=== PATIENT | female | born 2005 ===

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

== ENCOUNTER 2025-01-16 22:59 | Emergency (ER) | payer MEDICAID, SELFPAY ==
--- OUTSIDE RECORDS SUMMARY | 2015-06-29 01:00 | XMS_ITS | Encounter Summary ---
Author Organization [facility] Address [address] [place] [address] Phone Care Team Providers Care Dobby Loom Fixer Name Role Phone Unavailable Primary Care Provider Unavailabl e Encounter Details Date Type Department Care Team (Late st Contact Info) Description 06/29/2015 Hospital Encounter [facility] [address] [place] [address] Gian Aguirre MD Social History Tobacco Use Types Packs/Day Years Used Date Smoking Tobacco: Never Smokeless Tobacco: Never Child or Family Care Answer Date Record ed Do you have problems with on e of the following making it difficult for you to work, study, or receive health care? No 09/26/2023 Education Answer Date Recorded Are you interested in more education? Not on joycelyn e 09/26/2023 Are you concerned about your learning, performance, or behavior in school? No 09/26/2023 No 09/26/2023 Yes 09/26/2023 Food Answer Date Recorded Within the past 6 months we worried whether our food would run out before we got money to buy more. Never True 09/26/2023 Within the past 6 months the food we bought just didn't last and we didn't have enough money to get more. Never True Residential Stability Answer Date Recor ded What is your housing situation today? I have [place] 09/26/2023 How many times have you move d in the past 12 months? Zero (I did not move) 09/26/2023 Paying for Meds Answer Date Recorded Do you have trouble paying for medicines? No 09/26/2023 Paying Utility Bills Answer Date Record ed Do you have trouble paying your heating or elect ricity bill? No 09/26/2023 Transportation Answer Date Recorded Has the lack of transportati on kept you from medical appointments or from getting medications? Yes 09/26/2023 Unemployment Answer Date Recorded Are you currently unemployed or working on a part-time or temporary basis, and looking for work? No 04/19/2022 Digital Access Answer Date Recorded No 09/26/2023 Yes 09/26/2023 Do you have reliable internet access at home? Ye s 09/26/2023 Do you have a device (e.g., phone, tablet, computer) with a working camera? Yes 09/26/2023 Comments Unknown Sex and Gender Information Value Date Recorded Sex Assigned at Not on file Legal Sex Female 6:45 PM EST Gender Identity Not on file Sexual Orientation Not on file documented as of this encounter Plan of Treatment Not on file documented as of this encounter Procedures Procedure Name Priority Date/Time Associated Diagnosis Comments XR LOWER EXTREMITY OUTSIDE (NO INTERPRETATION) Routine 06/29/2015 12:00 AM EST documented in this encounter Results * XR Lower Extremity Outside (No Interpretation) (06/29/2015 12:00 AM EST) Narrative [facility] - 10/27/2015 2:09 PM EDT This study is for PACS storage only and not for interpretation. Procedure Note SYSTEMGENERATED, DOCUMENTATION - 10/27/2015 This study is for PACS storage only and not for interpretation. us Gian Aguirre MD IMG OUTSIDE IMAGING W/OUT IN TERPRETATION Final Result [facility] documented in this encounter Visit Diagnoses Not on filedocumented in this encounter Additional Health Concerns Infection Onset Date Last Indicated Resolved Time CoV-Risk 11/20/2019 11/22/2019 12/04/2019 1:27 AM EDT CoV-Risk 03/31/2020 04/08/2020 04/21/2020 1:2 3 AM EST CoV-Exposed Comment:Recent close contact documented in the COVID-19 PCR/PRO order 11/09/2020 11/19/2020 12/14/2020 1:25 AM E DT CoV-Risk 12/30/2020 12/30/2020 01/09/2021 1:25 AM EDT CoV-Risk 01/25/2021 01/25/2021 02/04/2021 1:22 AM EDT CoV-Exposed Comment:Recent close contact documented in the COVID-19 PCR/PRO order 03/02/2021 03/02/2021 03/27/2021 1:[address] CoV-Risk 04/25/2021 04/26/2021 05/05/2021 1:23 AM EST CoV-Exposed Comment:Recent close contact documented in the COVID-19 PCR/PRO order 04/25/2021 04/25/2021 05/10/2021 1:[address] CoV-Risk 05/10/2021 05/11/2021 05/20/2021 1:23 AM EST CoV-Risk 07/05/2021 07/05/2021 07/16/2021 1:24 AM EDT CoV-Risk 08/31/2021 08/31/2021 09/11/2021 1:22 AM EDT documented as of this encounter Additional Source Comments The information contained in this document represents components of the legal health record. It is not the complete legal health record.[facility]
--- OUTSIDE RECORDS SUMMARY | 2015-06-29 01:15 | XMS_ITS | Encounter Summary ---
Author Organization [facility] Address [address] [place] [phone] Phone Care Team Providers Care Cloth Printing Back Tender Name Role Phone Unavailable Primary Care Provider Unavailabl e Encounter Details Date Type Department Care Team (Late st Contact Info) Description 06/29/2015 12:15 AM EST Hospital Encounter [facility] [address] [place] [address] Gian Aguirre MD [email or web address] Social History Tobacco Use Types Packs/Day Years [...] LOWER EXTREMITY OUTSIDE (NO INTERPRETATION) Routine 06/29/2015 12:15 AM EST documented in this encounter Results * XR Lower Extremity Outside (No Interpretation) (06/29/2015 12:15 AM EST) Narrative [facility] - 10/27/2015 2:09 PM EDT This study is for PACS storage only and not for interpretation. Procedure Note SYSTEMGENERATED, DOCUMENTATION - 10/27/2015 This study is for PACS storage only and not for interpretation. us Gian Aguirre MD IMG OUTSIDE IMAGING W/OUT IN TERPRETATION Final Result [facility] documented in this encounter Visit Diagnoses Not on filedocumented in this encounter Additional Health Concerns Infection Onset Date Last Indicated Resolved Time CoV-Risk 11/20/2019 11/22/2019 12/04/2019 1:27 AM EDT CoV-Risk 03/31/2020 04/08/2020 04/21/2020 1:23 AM EST CoV-Exposed Comment:Recent close contact [...] It is not the complete legal health record.[facility]
--- OUTSIDE RECORDS SUMMARY | 2015-10-20 | XMS_ITS | Encounter Summary ---
Author Organization [facility] Address [address] [place] [address] Phone Care Team Providers Care Therapeutic Specialist Name Role Phone Unavailable Primary Care Provider Unavailabl e Encounter Details Date Type Department Care Team (Late st Contact Info) Description 10/20/2015 Hospital Encounter [facility] [address] [place] [address] Gian Aguirre MD Social History Tobacco Use [...] XR LOWER EXTREMITY OUTSIDE (NO INTERPRETATION) Routine 10/20/2015 12:00 AM EDT documented in this encounter Results * XR Lower Extremity Outside (No Interpretation) (10/20/2015 12:00 AM EDT) Narrative [facility] - 10/27/2015 2:10 PM EDT This study is for PACS storage only and not for interpretation. Procedure Note SYSTEMGENERATED, DOCUMENTATION - 10/27/2015 This study is for PACS storage only and not for interpretation. us Gian Aguirre MD IMG OUTSIDE IMAGING W/OUT IN TERPRETATION Final Result [facility] documented in this encounter Visit [...] It is not the complete legal health record.[facility]
--- OUTSIDE RECORDS SUMMARY | 2023-09-26 12:52 | XMS_ITS | Encounter Summary ---
Author Organization [facility] Address [address] [place] [phone] Phone Care Team Providers Care Behavioral Health Counselor Name Role Phone Gilda Lanza MD Primary Care Provider [phone] Gilda Lanza MD Unavailable [phone] Gilda Lanza MD Unavailable [phone] Encounter Details Date Type Department Care Team (Late st Contact Info) Description 09/26/2023 12:52 PM EDT Hospital Encounter [facility] Care - [id number] at [place], [place] [address] [place] [address] Olegario Huizar MD [address] [place] [id number] [email or web address] Social History Tobacco Use Types Packs/Day Years [...] your housing situation today? I have toi sing 09/26/2023 How many times have you move [...] Name Priority Date/Time Associated Diagnosis Comments XR FOOT 2 VIEWS (RIGHT) Routine 09/26/2023 1:05 PM EDT Pain XR FOOT 3 OR MORE VIEWS (LEFT) Routine 09/26/2023 1:05 PM EDT Pain documented in this encounter Results * XR FOOT 2 VIEWS (RIGHT) (09/26/2023 1:05 PM EDT) Anatomical Region Laterality Modality Foot Right Computed Radiogr aphy 09/26/2023 1:12 PM EDT Impressions 09/26/2023 1:18 PM EDT Left foot mild pes planus Narrative 09/26/2023 1:18 PM EDT XR FOOT 2 VIEWS (RIGHT), XR FOOT 3 OR MORE VIEWS (LEFT) Referring clinician's provided indication for this examination in Epic: Pain COMPARISON: None FINDINGS: Left foot: There is mild pes planus. No fracture. Normal alignment. Normal joint spaces. No soft tissue swelling. Right foot: No fracture. Normal alignment. Normal joint spaces. No soft tissue swelling. Procedure Note Cinthia Wooten MD - 09/26/2023 XR FOOT 2 VIEWS (RIGHT), XR FOOT 3 OR MORE VIEWS (LEFT) Referring clinician's provided indication for this examination in Epic:Pain COMPARISON: None FINDINGS: Left foot: There is mild pes planus. No fracture. Normal alignment.Normal joint spaces. No soft tissue swelling. Right foot: No fracture. Normal alignment. Normal joint spaces. No softtissue swelling. IMPRESSION: Left foot mild pes planus Olegario Huizar MD IMG XR LOWER EXTREMITY Final Result * XR FOOT 3 OR MORE VIEWS (LEFT) (09/26/2023 1:05 PM EDT) Anatomical Region Laterality Modality Foot Left Computed Radiogr aphy 09/26/2023 1:12 PM EDT Impressions 09/26/2023 1:18 PM EDT Left foot mild pes planus Narrative 09/26/2023 1:18 PM EDT XR FOOT 2 VIEWS (RIGHT), XR FOOT 3 OR MORE VIEWS (LEFT) Referring clinician's provided indication for this examination in Epic: Pain COMPARISON: None FINDINGS: Left foot: There is mild pes planus. No fracture. Normal alignment. Normal joint spaces. No soft tissue swelling. Right foot: No fracture. Normal alignment. Normal joint spaces. No soft tissue swelling. Procedure Note Cinthia Wooten MD - 09/26/2023 XR FOOT 2 VIEWS (RIGHT), XR FOOT 3 OR MORE VIEWS (LEFT) Referring clinician's provided indication for this examination in Epic:Pain COMPARISON: None FINDINGS: Left foot: There is mild pes planus. No fracture. Normal alignment.Normal joint spaces. No soft tissue swelling. Right foot: No fracture. Normal alignment. Normal joint spaces. No softtissue swelling. IMPRESSION: Left foot mild pes planus Olegario Huizar MD IMG XR LOWER EXTREMITY Final Result documented in this encounter Visit Diagnoses Diagnosis Pain Generalized pain documented in this encounter Additional Health Concerns Assessment Noted Time PHQ-9 Depression Total Score: 0 07/26/19 23 12:09 PM EDT PHQ-2 Depression Total Score: 0 07/26/19 23 12:09 PM EDT documented as of this encounter Care Teams Behavioral Health Counselor Relationship Specialty Start Date End Date Gilda Lanza MD [email or web address] PCP - General Pediatrics 05/22/18 Gilda Lanza MD [email or web address] Historical LMR Provider 05/24/18 Gilda Lanza MD [email or web address] Insurance Assigned Provider 07/29/23 documented as of this encounter Additional Source Comments The information contained in this document represents components of the legal health record. It is not the complete legal health record.[facility]
--- OUTSIDE RECORDS SUMMARY | 2023-09-26 15:40 | XMS_ITS | Encounter Summary ---
Author Organization [facility] Address [address] [facility] [address] [place] [address] Phone Care Team Providers Care Credit And Collection Manager Name Role Phone Gilda Lanza MD Primary Care Provider [phone] Gilda Lanza MD Unavailable [phone] Gilda Lanza MD Unavailable [phone] Reason for Referral * - Closed Specialty Diagnoses / Procedures Referred By Flaquita damon Referred To Contact Radiology Diagnoses Dysmenorrhea Procedures US Pelvis Gilda Lanza MD Phone: tel: fax: [email or web address]:[email or web address] Referral ID Status Reason Start Date Expiration Date Visits Re quested Visits Authorized [id number] Closed 09/26/2023 09/25/2024 1 1 Reason for Visit * - Closed Specialty Diagnoses / Procedures Referred By Flaquita damon Referred To Contact Radiology Diagnoses Dysmenorrhea Procedures US Pelvis Gilda Lanza MD Phone: tel: fax: [email or web address]:[email or web address] Referral ID Status Reason Start Date Expiration Date Visits Re quested Visits Authorized [id number] Closed 09/26/2023 09/25/2024 1 1 Encounter Details Date Type Department Care Team (Late st Contact Info) Description 09/26/2023 3:40 PM EDT Hospital Encounter [facility] - Radiology-Ultrasound at [place], [place] [address] [place] [address] Gilda Lanza MD [address] [place] [phone] Social History Tobacco Use Types Packs/Day Years [...] Procedure Name Priority Date/Time Associated Diagnosis Comments US PELVIS TRANSABDOMINAL ONLY Routine 09/26/2023 5:04 PM EDT Menorrhagia with regular cycle documented in this encounter Results * US PELVIS TRANSABDOMINAL ONLY (09/26/2023 5:04 PM EDT) Anatomical Region Laterality Modality Pelvis, Uterus/Adnexa Ultrasound 09/26/2023 5:16 PM EDT Impressions 09/26/2023 5:22 PM EDT Normal transabdominal pelvic ultrasound. Per incendiaries supervisor notes, the patient declined transvaginal evaluation. Narrative 09/26/2023 5:22 PM EDT Procedure: US PELVIS TRANSABDOMINAL ONLY 09/26/2023 4:47 PM US Indications: Pain. Comparison: No relevant recent comparisons. Technique: Transabdominal sonography of the pelvis was performed. The patient declined transvaginal sonography. Color and spectral Doppler imaging was performed to assess vascularity. No 3-D images were acquired. Reported LMP: 09/11/2023. FINDINGS: Uterus: The uterus measures 5.4 x 2.8 x 4.7 cm (volume: 37.4 mL) acquired transabdominally. The myometrium is homogeneous. The uterus is anteverted in its positioning. No focal cervical masses. No focal myometrial findings. Endometrium: The endometrium measures 3.7 mm and appears homogeneous. No endometrial masses. No fluid is identified within the endometrial canal. Ovaries: The right ovary measures 3.1 x 1.8 x 1.7 cm (volume: 5.0 mL) transabdominally. No evidence of solid mass or cyst greater than 3 cm. Physiologic follicles are present, measuring up to 9 mm. Vascularity Right Ovary: There is normal color Doppler flow to the ovary. There are normal arterial and venous Spectral Duplex inflow and outflow waveforms present. The left ovary measures 3.8 x 1.6 x 3.2 cm (volume: 10.1 mL) transabdominally. No evidence of solid mass or cyst greater than 3 cm. Physiologic follicles are present. Vascularity Left Ovary: There is normal color Doppler flow to the ovary. There are normal arterial and venous Spectral Duplex inflow and outflow waveforms present. Fluid: There is no evidence of free pelvic fluid. Procedure Note Kar Suresh MD - 09/26/2023 Procedure: US PELVIS TRANSABDOMINAL ONLY 09/26/2023 4:47 PM US Indications: Pain. Comparison: No relevant recent comparisons. Technique: Transabdominal sonography of the pelvis was performed. Thepatient declined transvaginal sonography. Color and spectral Dopplerimaging was performed to assess vascularity. No 3-D images wereacquired. Reported LMP: 09/11/2023. FINDINGS: Uterus: The uterus measures 5.4 x 2.8 x 4.7 cm (volume: 37.4 mL) acquiredtransabdominally. The myometrium is homogeneous. The uterus is antevertedin its positioning. No focal cervical masses. No focal myometrialfindings. Endometrium: The endometrium measures 3.7 mm and appears homogeneous. No endometrialmasses. No fluid is identified within the endometrial canal. Ovaries: The right ovary measures 3.1 x 1.8 x 1.7 cm (volume: 5.0 mL)transabdominally. No evidence of solid mass or cyst greater than 3 cm. Physiologic folliclesare present, measuring up to 9 mm. Vascularity Right Ovary: There is normal color Doppler flow to the ovary.There are normal arterial and venous Spectral Duplex inflow and outflowwaveforms present. The left ovary measures 3.8 x 1.6 x 3.2 cm (volume: 10.1 mL)transabdominally. No evidence of solid mass or cyst greater than 3 cm. Physiologic folliclesare present. Vascularity Left Ovary: There is normal color Doppler flow to the ovary.There are normal arterial and venous Spectral Duplex inflow and outflowwaveforms present. Fluid: There is no evidence of free pelvic fluid. IMPRESSION: Normal transabdominal pelvic ultrasound. Per incendiaries supervisor notes, the patient declined transvaginal evaluation. us Gilda Lanza MD IMG US PELVIS Final Resul t documented in this encounter Visit Diagnoses Diagnosis Menorrhagia with regular cycle documented in this encounter Additional Health Concerns Assessment Noted Time PHQ-9 Depression Total Score: 0 07/26/19 23 12:09 PM EDT PHQ-2 Depression Total Score: 0 07/26/19 23 12:09 PM EDT documented as of this encounter Care Teams Credit And Collection Manager Relationship Specialty Start Date End Date Gilda Lanza MD PCP - General Pediatrics 05/22/18 Gilda Lanza MD Historical LMR Provider 05/24/18 Gilda Lanza MD Insurance Assigned Provider 07/29/23 documented as of this encounter Additional Source Comments The information contained in this document represents components of the legal health record. It is not the complete legal health record.[facility]
[2025-01-16 23:02] VITALS: BP 126/70; PULSE 92; RESP 16; TEMP 36.8; O2SAT 96; BMI 29.1
--- NOTE | 2025-01-16 23:08 | ECG_ITS ---
Test Reason : CHEST PAIN Blood Pressure : */* mmHG Vent. Rate : 68 BPM Atrial Rate : 68 BPM P-R Int : 138 ms QRS Dur : 98 ms QT Int : 400 ms P-R-T Axes : 76 55 55 degrees QTcB Int : 425 ms Normal sinus rhythm with sinus arrhythmia Normal ECG No previous ECGs available Referred By: Generic ED Physician Electronically Signed By: Fabrizio Hadley
[2025-01-16 23:54] LABS: Hematocrit 35.2 % (37.0-47.0); Hemoglobin 12.2 g/dl (12.0-16.0); Imm Gran Abs Auto 0.03 X10*3/uL (0.00-0.03); Imm Gran Pct Auto 0.4 % (0.0-0.4); Lymphocytes Absolute Auto 2.8 X10*3/uL (1.2-4.9); MANUAL DIFF FLAG NO; Mean Corpuscular HGB Conc 34.7 g/dl (31.0-35.0); Mean Corpuscular Hemoglobin 29.7 pg (27.0-33.0); Mean Corpuscular Volume 85.6 fL (80.0-98.0); NRBC Abs Auto 0.000 X10*3/uL (0.0-0.012); NRBC Pct Auto 0.0 /100WBC (0.0-0.2); Platelet Count 263 X10*3/uL (160-400); Red Blood Count 4.11 X10*6/uL (4.20-5.50); White Blood Count 7.6 X10*3/uL (4.8-10.8)
[2025-01-17 00:16] LABS: Alanine Aminotransferase 14 U/L (0-31); Albumin Level 4.0 g/dL (3.5-5.0); Alkaline Phosphatase 69 U/L (39-117); Anion Gap 13 (12-20); Aspartate Amino Transferase 29 U/L (5-31); Blood Urea Nitrogen 15 mg/dL (9-16); Calcium 9.0 mg/dL (8.4-10.2); Carbon Dioxide 25 mmol/L (22-29); Chloride 108 mmol/L (96-108); Creatinine Clr Calc Pharmacy 110.8; Estimated Glomerular Filt Rate > 60; Potassium 3.9 mmol/L (3.3-5.1); Sodium 142 mmol/L (135-145); Total Protein 6.6 g/dL (6.5-8.0); Troponin-I High Sensitivity < 2.7 ng/L (<3.5-17.0)
--- NOTE | 2025-01-17 00:21 | ED.CHESTPAIN ---
HPI - Chest Pain General Chief Complaint: Chest Pain Stated Complaint: CP, SOB, rapid heart beat, numbness in toes Time Seen by Provider: 01/16/25 23:44 History of Present Illness HPI narrative: Patient is a 19-year-old female that presents today with having intermittent chest pain that is ongoing for the last 2 months. No recent travel. The chest pain is on the right side it is worse with certain position patient works out on a regular basis she has a certified personal trainer. She denies any recent travel denies any leg pain denies any leg swelling denies any history of blood clot any family history of blood clot any history of cancer and a history be on control pills. Patient denies any trauma to the chest. Denies any history of diabetes, hypertension, high cholesterol, smoking, mi. does smoke marijuana from time to time. Patient denies any diaphoresis the pain is sharp it is constant it lasts for a few hours it is worse with certain position. Related Data Allergies Allergy/AdvReac Type Severity Reaction Status Date / Time No Known Allergies Allergy Verified 01/16/25 23:07 Review of Systems Review of Systems: Positive chest pain Yes all other systems are reviewed and are negative [facility] Past Medical History Attestation statement: The following information was validated with the patient. Social History Social History Advance Directives: No Advance Directives Information Provided: Yes Do you have a plan to hurt others: No Plan Physical Exam Exam: Exam: Appearance: Alert. Oriented X3. No acute distress. Eyes: Pupils equal, round and reactive to light. ENT: Pharynx normal. Neck: Normal inspection. Neck supple. No lymph nodes noted. No crepitus CVS: Normal heart rate and rhythm. Pulses normal. Normal S1 and S2 Respiratory: No respiratory distress. Breath sounds normal. No Wheezing. No rales Abdomen: Soft and nontender. No rigidity. No distention. good BS x4 Skin: Skin warm and dry. Normal skin color. Normal skin turgor. Extremities: No lower extremity edema. Neurovascular intact to all extremities. No Lacerations. No Rash Neuro: Oriented X 3. No motor deficit. No sensory deficit. Moving all extermities. No slurred speech Vital Signs: Vital Signs: Last Vital Signs Temp 98.2 F 01/16/25 23:02 Pulse 69 09/26/25 01:02 Resp 20 01/17/25 01:02 BP 112/54 L 01/17/25 01:02 Pulse Ox 100 01/17/25 01:02 O2 Del Method Room Air 01/17/25 01:02 BMI result Body Mass Index 29.1 Medical Decision Making Medical Decision Making MDM Narrative: Patient's D-dimer negative. In the setting of low risk unlikely to have PE. 19 years old chest pain atypical for ACS troponin is negative EKG is normal heart score is less than 3. Chest x-ray showed no pneumonia no pneumothorax. Will discharge patient home close follow-up on an outpatient basis currently in stable condition. Differential Diagnosis Differential Diagnoses: The differential diagnosis associated with the presentation includes ACS, pneumonia, pneumothorax, PE Admission/Observation Consideration of admission/observation: Escalation of care including admission/observation considered Lab Data [facility] Lab Attestation statement: I reviewed the patient's lab results. 01/16/25 23:50 01/16/25 23:50 Labs: Lab Results 01/16/25 01/17/25 Range/Units 23:50 01:01 WBC 7.6 (4.8-10.8) X10*3/uL RBC 4.11 L (4.20-5.50) X10*6/uL Hgb 12.2 (12.0-16.0) g/dl Hct 35.2 L (37.0-47.0) % MCV 85.6 (80.0-98.0) fL MCH 29.7 (27.0-33.0) pg MCHC 34.7 (31.0-35.0) g/dl RDW 13.5 (11.0-16.0) % Plt Count 263 (160-400) X10*3/uL MPV 8.6 L (9.4-12.3) fL Immature Gran % (Auto) 0.4 (0.0-0.4) % Neut % (Auto) 53.4 (45-73) % Lymph % (Auto) 36.9 (20-40) % [place] % (Auto) 7.8 (2-11) % Eos % (Auto) 1.1 (0-4) % Baso % (Auto) 0.4 (0-2) % Lymph # (Auto) 2.8 (1.2-4.9) X10*3/uL [place] # (Auto) 0.6 (0.1-1.2) X10*3/uL Eos # (Auto) 0.1 (0.0-0.4) X10*3/uL Baso # (Auto) 0.0 (0.0-0.2) X10*3/uL Abs Immat Gran (auto) 0.03 (0.00-0.03) X10*3/uL Absolute Neuts (auto) 4.1 (2.0-8.3) x10*3/uL Absolute Nucleated RBC 0.000 (0.0-0.012) X10*3/uL Nucleated RBC % (auto) 0.0 (0.0-0.2) /100WBC D-Dimer High Sensitivty 158 NG/ML Sodium 142 (135-145) mmol/L Potassium 3.9 (3.3-5.1) mmol/L Chloride 108 (96-108) mmol/L Carbon Dioxide 25 (22-29) mmol/L Anion Gap 13 (12-20) BUN 15 (9-16) mg/dL Creatinine 0.82 (0.5-1.4) mg/dL Estim Creat Clear Calc 110.8 Estimated GFR > 60 Random Glucose 86 (60-115) mg/dL Calcium 9.0 (8.4-10.2) mg/dL Total Bilirubin 0.5 (0.0-1.0) mg/dL AST 29 (5-31) U/L ALT 14 (0-31) U/L Alkaline Phosphatase 69 (39-117) U/L Troponin I High Sens < 2.7 (<3.5-17.0) ng/L Total Protein 6.6 (6.5-8.0) g/dL Albumin 4.0 (3.5-5.0) g/dL Independent Interpretation I performed an independent interpretation of an: EKG (Sinus heart rate is 70 ND QRS QTC normal no acute ST segment elevation) Radiology Impression Discussion of test interpretation with radiology: I have reviewed the radiologist's reading. Independent Historian Clinical information obtained from an independent historian. History obtained from or confirmed by: Friend (Additional history obtained per friend) Tests considered The following testing was considered but not selected: Considered CTA but was not done because patient's risk for PE is low Social Determinants Patient?s care significantly limited by Social Determinants of Health including: Problems related to primary support group Discharge Plan Discharge Clinical Impression: Chest pain Patient Disposition: Home, Self-Care Instructions: Chest Pain (DC) Referrals: [facility] [Physician, Medical] - 01/21/25 Print Language: Maltese
--- OUTSIDE RECORDS SUMMARY | 2025-01-17 00:34 | XMS_ITS | Clinical Summary ---
Author Organization [facility] Address [address] [place] [id number] Phone Care Team Providers Care Solar Installation Helper Name Role Phone Gilda Lanza MD Primary Care Provider [phone] Gilda Lanza MD Unavailable [phone] Gilda Lanza MD Unavailable [phone] Allergies No known active allergies Medications meloxicam (MOBIC) 15 MG tabletIndication s:Metatarsalgia of left foot,Heel cord tightness, left Take 1 tablet (15 mg total) by mouth daily. 30 tablet 09/26/2023 Active cholecalciferol (VITAMIN D3) 25 MCG (1,000 unit) tabletIndication s:Vitamin D deficiency Take 1 tablet (1,000 Units total) by mouth daily. 100 tablet 3 10/04/2023 Active ibuprofen (ADVIL,MOTRIN) 600 MG tabletIndication s:Dysmenorrhea in adolescent take 1 tablet by mouth every 8 hours as needed for pain 30 tablet 1 10/22/2023 Active Active Problems Problem Noted Date Diagnosed Date Metatarsalgia of left foot 09/26/2023 Heel cord tightness, left 09/26/2023 Achilles tendinitis of left lower extremity 07/2023 Dysmenorrhea in adolescent 05/13/2022 Assessment & Plan (06/04/2022 9:43 AM EST): Disc heat fluids and early use of analagesia regularly through first 2d Assessment & Plan (05/13/2022 8:24 PM EST): Disc fluids heating pad and use of Midol If not beneficial to call Protein-calorie malnutrition 04/18/2022 Overview (05/13/2022): Mar 2022 seen for excess weight loss labs normal follow up visit gained and was to follow up in another week but did not Assessment & Plan (06/30/2022 10:20 PM EST): BW not yet done Schedule PE and do at visit Will reach out to school nurse for continued weight check Assessment & Plan (06/04/2022 9:42 AM EST): Weight stable Reports will come in person next week Stressed 3 meals disc balanced nutrition Assessment & Plan (05/27/2022 11:40 AM EST): Large weight fluctuations a concern Disc with Dad if next week big change will need OV and BW. Disc 3 meals adequate fluids limit PE No access to home scale Assessment & Plan (05/13/2022 8:18 PM EST): Stressed importance of weekly weights and visits Agree with stopping basketball and to also not do any cardio at gym If continues to lose will need to stop dance. Disc with dad and Yovana must have 3 meals and 2 snacks At follow up will enlist supervisor underwriting clerks Agree with counseling Assessment & Plan (04/19/2022 12:07 AM EST): Yovana Lehman has malnutrition, manifested by a significant weight loss (BMI dropping from the 95th percentile to the 73rd percentile over 9 months. Clinical signs of malnutrition include lightheadedness and dizziness (especially with sports) without syncope, generalized fatigue, worsening of her preexisting irregular periods (thought pt is dx with PCOS, so this is difficult to determine) Malnutrition can be cause by a number of different factors, such has insufficient caloric intake, increased metabolic demand (due to factors such as chronic illness or hyperthyroidism), malabsorption due to GI disease (e.g. Celiac disease and IBD) or increased losses (such as in diarrheal illness). We will evaluate for the following causes of malnutrition today: 1) Thyroid disease: TSH, FT4 2) IBD: ESR, CRP, CBC/d 3) Celiac disease We will evaluate for nutritional deficiencies (vitamin D, ferritin, MMA) and obtain a CMP/Mg/Phos to evaluate for electrolytes and determine risk of refeeding. We will obtain an EKG to evaluate for cardiac sequelae of malnutrition. We discussed that she has symptomatic malnutrition and should not participate in any physical activity. Due to her depression and its improvement with participation in sports, dad asked me to not restrict sports at this time. We discussed that she is not healthy enough to continue in sports. Dad and pt would like to try to work on gaining weight in order to improve her nutritional status and reduce her malnutrition sx. I discussed the risks and benefits of this approach. We will need to follow with her closely (weekly) in order to monitor her progress. If she is not improving, we will need to restrict sports. I discussed plan with mom, who was not present, in great detail. Both dad and mom are in agreement about pt's need to gain weight. Since pt lives in [place], I discussed that we can arrange to have weight checks and orthostatics done at the school nurse's office weekly, labs in [place] (since dad drives there regularly) and weekly virtual visits with me. I would like to see her in the office at least once a month. She is consuming much less than needed to maintain and/or gain weight. The plan for her caloric intake is below: Patient Instructions Eat 5-7 small meals throughout the day Add in Boost or Ensures if you're unable to eat Get a calorie tracker on your phone (TSO3 ganesh or TrulySocialpal) Goal calories is 2000 calories a day Eat 1000 calories tomorrow Then increase 1250 calories the next day Then 1500 calories the next day Then 1750 calories the next day Then 2000 calories the next day Depression with anxiety 07/22/2021 Overview (05/13/2022): Started fluoxetine 06/2021 but stopped per parental preference Assessment & Plan (06/30/2022 9:15 PM EST): Cautioned on use of herbal supplements that are not certified Disc [facility] information on Yoli Due for physical follow up then Assessment & Plan (06/04/2022 9:43 AM EST): Has not started medication Disc start Use fluoxetine prn Assessment & Plan (05/27/2022 11:42 AM EST): Disc pro/con of medication in stabilizing mood during adjustment until counseling started as well Healthy lifestyle and stress relief just as important Sent in medication and to disc with Jaylanee whether to start Can use hydroxyzine as well follow up 1 week Assessment & Plan (05/13/2022 8:19 PM EST): Agree with counseling Discussed use of hydroxyzine May need to reconsider SSRI Vitamin D deficiency 07/23/2020 PCOS (polycystic ovarian syndrome) 07/23/2020 Overview (07/23/2020): 06/2020 irregular menses labs showed androgen excess Assessment & Plan (07/30/2022 8:50 AM EDT): Does not wish meds Constipation 05/30/2017 Acne vulgaris 07/14/2016 Wears glasses 07/10/2014 Nevus 07/05/2012 Encounter for routine child health examination without abnormal findings 10/22/2008 Assessment & Plan (07/08/2018 8:33 PM EDT): Anticipatory guidance provided Immunizations Immunization Administration Dates Next Due COVID-19 (Pre-02/13) Pfizer Vaccine, mRNA, PF 09/30/2020,09/09/2020 DTP 07/07/2009, 7,01/11/2006,11/02,2005 HPV9 01/26/2017,07/14/2016 Hepatitis A, Unspecified 07/09/2007,10/09/2006 Hepatitis B, unspecified formulation 2006, 2005,2005 Hib, unspecified formulation 10/08/2009, 2006,2005,09/14 INFLUENZA, SPLIT VIRUS, TRIV ALENT W/ PRESERVATIVE IM 12/25/2013,12/31/2012,01/03/2012 Influenza Quadrivalent Prese rvative Free IM 02/11/2021,01/20/2020,01/29/2019,01/31,01/26/2017,01/20/2016,01/13/2015 Influenza, Unspecified Formulation 12/29,01/29/2010,01/16/2009,03/09,02/09/2007 MMR 07/07/2009,2006 Meningococcal B, OMV (MenB-4C) 07/05/2021 Meningococcal MCV4O 07/05/2021 Meningococcal MCV4P 07/14/2016 PPD Test 04/13/2010 Pneumococcal, Unspecified Formulation ,2006,04/05/2006,01/11,2005 Polio, Unspecified Formulation 0,01/11/2006,2005,09/14 Tdap 07/14/2016 Varicella 07/07/2009,2006 Family History Medical History Relation Comments Obesity Father bariatric surger y Diabetes Maternal Grandfather Hypertension Maternal Grandfather Hypertension Maternal Grandmother Asthma Mother Family history o f asthma Cancer Paternal Grandfather Suicidality Paternal Half-Sister 1 No Known Problems Paternal Half-Sister 2 Head and neck cancer Neg Hx Hearing loss Neg Hx Relation Status Comments Father Alive Half-Sister Alive Maternal Grandfather Alive Maternal Grandmother Alive Mother Alive Paternal Grandfather Alive Paternal Half-Sister 1 Alive Paternal Half-Sister 2 Alive Social History Tobacco Use Types Packs/Day Years [...] on file Sexual Orientation Not on file Last Filed Vital Signs Vital Sign Reading Time Taken Comments Blood Pressure 110/64 09/26/2023 8:35 AM EDT Pulse 74 04/19/2022 12:22 PM EST Temperature 36.5 C (97.7 F) 09/26/2023 8:35 AM EDT Respiratory Rate - - Oxygen Saturation 98% 07/25/2022 12:40 PM EDT Inhaled Oxygen Concentration - - Weight 65.8 kg (145 lb) 09/26/2023 1:36 PM EDT Height 163.8 cm (5' 4.49 ) 09/26/2023 1:36 PM ED T Body Mass Index 24.51 09/26/2023 1:36 PM EDT Body Mass Index Percentile 78.96% 09/26/2023 1:3 6 PM EDT Growth Chart: CDC (Girls, 2- 20 Years) Plan of Treatment Health Maintenance Due Date Last Done Comments SMOKING Hx and SMOKELESS TOBACCO SCREENING 2018 MENINGOCOCCAL VACCINES (B) (2 of 2 - Bexsero SCDM 2-dose series) 01/05/2022 07/05/2021 BMI ASSESSMENT 09/25/2024 09/26/2023 CHLAMYDIA SCREENING 09/25/2024 09/26/2023, DEPRESSION SCREENING 09/25/2024 09/26/2023, 07/26/19 DEVELOPMENTAL/BEHAVIORAL SCREENING (PHQ, PSC, or SWYC) 09/25/2024 09/26/2023, 09/26/2023, 07/25/2022 INFLUENZA VACCINE (#1) 2024 , 01/20/2020, 01/29/2019, Additional history exists COVID-19 VACCINE ( season) 2024 09/30/2020, 09/09/2020 COMBINED DTaP,Tdap,Td (7 - Td or Tdap) 07/14/2026 07/14/2016, 07/07/2009, 10/09/2006, Additional history exists HEPATITIS B VACCINES Completed 2006, 2005, 2005 HEPATITIS A VACCINES Completed 07/09/2007, 10/10/19 07 MMR VACCINES Completed 07/07/2009, 2006 VARICELLA VACCINES Completed 07/07/2009, 2006 HIB VACCINES Completed 10/08/2009, 06/22, 2005, Additional history exists PNEUMOCOCCAL VACCINES (0-49 years) Aged Out 10/08/2009, 2006, 04/05/2006, Additional history exists No longer eligible based on patient's age to complete this topic HPV VACCINES Completed 01/26/2017, 07/14/2016 MENINGOCOCCAL VACCINES (ACWY) Completed 07/05/2021, 07/14/2016 ADOLESCENT UNIVERSAL LIPID SCREENING Completed 07/25/2022, 07/17/2020, 10/23/2019 HEPATITIS C SCREENING Completed 09/26/2023 HIV ONE-TIME SCREENING (18-65 YEARS) Completed 09/26/2023 Medical Devices Not on file Procedures Procedure Name Priority Date/Time Associated Diagnosis Comments CHLAMYDIA TRACHOMATIS AND NEISSERIA GONORRHOEAE NUCLEIC ACID DETECTION Routine 09/26/2023 9:36 AM EDT Need for hepatitis C screening test HEPATITIS C ANTIBODY, QUALITATIVE Routine 09/26/2023 9:36 AM EDT Need for hepatitis C screening test LIPID PANEL Routine 07/25/2022 1:16 PM EDT Protein-calorie malnutrition, unspecified severity from Last 3 Months or Most Recently Relevant to Health Maintenance Results * Chlamydia trachomatis and Neisseria gonorrhoeae Nucleic Acid Amplification (09/26/2023 9:36 AM EDT) C.TRACHOMATIS, AMP Not Detected Not Detected [facility] Specimen type (C. Trachomatis DNA) URINE [facility] N.Gonorrhoeae, AMP Not Detected Not Detected [facility] Specimen type URINE [facility] Urine (Urine) 09/26/2023 9:3 6 AM EDT 09/26/2023 9:48 AM EDT Gilda Lanza MD NON CULTURE MICROBIOLOGY Fi nal Result Performing Organization Address [facility]/ZIP Co de Phone Number [address] * Hepatitis C antibody, qualitative (09/26/2023 9:36 AM EDT) Pathologist [facility] HCV ANTIBODY Non-Reacti ve Non-Reacti ve [facility] Blood 09/26/2023 9:36 AM EDT 09/26/2023 9:48 AM EDT Gilda Lanza MD LAB BLOOD ORDERABLES Final Result Performing Organization Address [facility]/ZIP Co de Phone Number [address] * Lipid panel (07/25/2022 1:16 PM EDT) HDL 66 >39 mg/dL [facility] CHOLESTEROL 134 0 - 169 mg/dL [facility] TRIGLYCERIDES 43 0 - 89 mg/dL [facility] LDL 59 50 - 129 mg/dL [facility] NON-HDL CHOLESTEROL 68 mg/dL [facility] Comment:Reference Range: The non-HDL Cholesterol value should not exceed the desired LDL-C by more than 30 mg/dl. Blood 07/25/2022 1:16 PM EDT 07/25/2022 1:21 PM EDT Gilda Lanza MD LAB [place]LOOD [place] [address], [facility] from Last 3 Months or Most Recently Relevant to Health Maintenance Insurance [facility] [facility] [employer] [place] [id number] [facility] [employer]YE[employer] FAM[employer] EM[employer]YEES FAMILY EMPLOYEES FAMILY [facility] [employer] [employer] [employer] [employer] [facility] [employer] FAMILY [employer] [facility] [employer] FAM[employer] Care Teams Solar Installation Helper Relationship Specialty Start Date End Date Gilda Lanza MD [email or web address] PCP - General Pediatrics 05/22/18 Gilda Lanza MD Historical LMR Provider 05/24/18 Gilda Lanza MD Insurance Assigned Provider 07/29/23 Additional Source Comments The information contained in this document represents components of the legal health record. It is not the complete legal health record.[facility]
[2025-01-17 01:02] VITALS: BP 112/54; PULSE 69; RESP 20; O2SAT 100
[2025-01-17 01:14] LABS: D Dimer High Sensitivity 158 NG/ML
[2025-01-17 02:10] VITALS: BP 112/54; PULSE 69; RESP 20; TEMP -17.7; TEMP 0; O2SAT 100
== END 2025-01-17 02:14 | disposition home or self-care (01) ==
PROVIDERS: Emergency Provider Emergency Medicine Emergency Medical Services
DX: R07.89 Other chest pain (principal)
CPT/HCPCS: 36415; 80053; 84484; 85025; 85379; 93005; 99283; 99284

== ENCOUNTER → 2025-01-16 23:08 | Outpatient (BNV) | payer MEDICAID, SELFPAY | PROVIDERS: Emergency Provider Emergency Medicine Emergency Medical Services; Visit Provider Internal Medicine Cardiovascular Disease | DX: R07.89 Other chest pain (principal) | CPT/HCPCS: 93010 ==